=== PATIENT | male | born 1990 | race Caucasian/White ===

== ENCOUNTER 2017-09-24 19:28 | Inpatient (IN) | payer MEDICAID, BC, OTHER ==
[~2017-09-24] VITALS: Ht 182.9 cm; Wt 59.0 kg
[~2017-09-24 19:28] MED LIST: Baclofen PO; DIPH50CA37 PO; Gabapentin PO; HYDR-3895 PO; Ibuprofen PO
--- NOTE | 2017-09-25 00:20 | NUR ---
PRE-ADMISSION NOTE Pt is a 27 y/o male, seen at intake, AAOx4, no SOB with mild anxiety noted at this time. Discussed with patient the admission policies of the unit. Patient is coherent and able to respond to questions appropriately. Pt is ambulatory with steady gait. Vital signs taken and as follows: BP: 117/67, P: 80, R: 17, O2: 97%, T: 97.8, PA: 0. Pt verbalized understanding of instructions and teachings regarding disposal of narcotic and other controlled home medications, unit protocols such as taking of vital signs Q4H and handling and disposal of contraband. Will continue with admission upon pts arrival on the unit.
[2017-09-25 00:32] VITALS: BP 117/67
--- NOTE | 2017-09-25 00:32 | NUR ---
ADMISSION NOTE Pt is a 27 y/o male admitted on 09/25/17 for Opiate/Benzo/ETOH dependence, arrived on the unit at 0032 . Pt has NKA, reports one episode of a seizure due to benzo withdrawal in 2010. Pt was able to provide UDS. Upon admission CIWA 3 and COWS 4, BP: 117/67, P: 80, R: 17, O2: 97%, T: 97.8, PA: 0. Weight 130, height 60''. Pt reports his primary care provider is Dr. Ferrell in [place], [place]. Pt reports he smokes 1 pack daily, denies being hospitalized within past 30 days. Pt is able to understand and respond to all questions pertaining to his hospitalization. Substance Abuse History is as follows: 1. Beer 6 pack/daily, last intake of a "few beers" on 09/22/2017, at this rate since 06/2017. Pt has been using since age 11 years of age. 2. Xanax PO 6-8mgd/daily, last intake of 2mg on 09/24/2017, at this rate since 06/2017. Pt has been using since age 13 years of age. 3.Heroin IV 2g/daily, last intake of 1g on 09/24/2017, at this rate since 06/2017, Pt has been using since age 16 years of age. 4.Methamphetamine IV 0.5-1g/every other day, last intake of 0.5g on 09/24/2017, Pt has been using for 1 year. 5. PCP smoke. Pt reports he smoke "one sherm stick" one time on 09/19/2017. 6.Marijuana "1 joint"/daily, last intake of "1 joint" on 09/24/2017, pt has been using at this rate since 06/2017. Pt has been using since age 16 year of age. Pt relapsed on 06/2017. Pt reports he relapsed when his best friend over dosed on 06/2017. Pt's longest sober period is for 8 months from 10/2016 to 06/2017. Treatment history: [facility], from 05/2016 - 06/2016, [facility], 08/2017, [facility], 10/2017 Pt reports he has been to other detox tx center, however he does remember all the names. PMH: Anxiety, depression, HPV, hepatitis C and seizure history d/t Benzo withdrawal in 2017. Pt did not bring any medications from home, but reports taking Remeron 15mg for sleep and Gabapentin 900mg at home. Upon assessment, pt is AAOx3, pt is moderately intoxicated, presents with anxiety, skin is flushed, and mild body aches. Respirations even and unlabored. Denies SOB, chest pain, N/V/D. PERRLA. Track leiva noted on bilateral arms. Pt denies SI/HI. Educational information provided and left at bedside. Pt oriented to room and encouraged to notify staff with any concerns. Safety measures in place. Call light within reach, side rails up x 2, bed locked and in low position. Will continue to monitor. Addendum: 09/25/17 at 0400 by CRIS GROVER RN PMH: Anxiety, depression, HPV, hepatitis C and seizure history d/t Benzo withdrawal in 2010
[2017-09-25 01:10] LABS: *AMPHETAMINE, URINE POSITIVE (NEGATIVE); *BARBITURATE, URINE NEGATIVE (NEGATIVE); *CANNABINOID, URINE POSITIVE (NEGATIVE); *COCCAINE, URINE NEGATIVE (NEGATIVE); *OPIATE, URINE POSITIVE (NEGATIVE); *PHENCYCLIDINE SCREEN,URINE POSITIVE (NEGATIVE)
[2017-09-25] MEDS ORDERED: MIRT15TA PO (02:09)
[2017-09-25] MEDS ORDERED: MAGNESIUM HYDROXIDE 30 ML LIQUID UDC PO PRN (03:45)
[2017-09-25] MEDS ORDERED: MAG HYDROX/AL HYDROX/SIMETH 30 ML LIQUID UDC PO PRN (03:45)
[2017-09-25] MEDS ORDERED: BUPRENORPHINE HCL 2 MG TAB.SUBL SL PRN (03:45)
[2017-09-25] MEDS ORDERED: ONDANSETRON 4 MG/2 ML VIAL IM PRN (03:45)
[2017-09-25] MEDS ORDERED: LOPERAMIDE HCL 2 MG CAPSULE PO PRN ×2 (03:45)
[2017-09-25] MEDS ORDERED: IBUPROFEN 600 MG TABLET PO PRN (03:45)
[2017-09-25] MEDS ORDERED: diphenhydrAMINE 50 MG CAPSULE PO PRN (03:45)
[2017-09-25] MEDS ORDERED: ONDANSETRON ODT 4 MG TAB.RAPDIS SL PRN (03:45)
[2017-09-25] MEDS ORDERED: LORAZEPAM 2 MG/1 ML VIAL IM PRN (03:45)
[2017-09-25] MEDS ORDERED: DICYCLOMINE HCL 20 MG TABLET PO PRN (03:45)
[2017-09-25] MEDS ORDERED: ACETAMINOPHEN 325 MG TABLET PO PRN (03:45)
[2017-09-25] MEDS ORDERED: THIAMINE HCL 200 MG/2 ML VIAL IM ONE (03:45)
[2017-09-25] MEDS ORDERED: LORAZEPAM 1 MG TABLET PO PRN ×2 (03:45)
[2017-09-25] MEDS ORDERED: HYDROXYZINE PAMOATE 25 MG CAPSULE PO PRN (03:45)
[2017-09-25] MEDS ORDERED: MIRALAX 17 GM POWD.PACK PO PRN (03:45)
[2017-09-25] MEDS ORDERED: CLONIDINE HCL 0.1 MG TABLET PO PRN (03:45)
[2017-09-25 04:00] VITALS: BP 113/55
--- NOTE | 2017-09-25 04:00 | NUR ---
CIWA/COWS deferred due to pt sleeping, to assess while pt awake as ordered. BP 113/55, pulse 61, resp 16, Spo2 96% room air,temp 97.6, no pain 0/10 Pt is sleeping, resp even/unlabored, safety measures in place, will continue to monitor.
[2017-09-25 04:46] LABS: BASOPHILS % (AUTO) 0.7 % (0.0-2.0); EOSINOPHILS # (AUTO) 0.1 K/uL (0.0-0.7); EOSINOPHILS % (AUTO) 1.5 % (0.0-7.0); HEMATOCRIT 41.1 % (40-50); HEMOGLOBIN 13.7 G/DL (14.0-18.0); LYMPHOCYTES # (AUTO) 1.1 K/UL (0.8-4.8); LYMPHOCYTES % (AUTO) 23.6 % (20.5-51.5); MEAN CORPUSCULAR HEMOGLOBIN 29.6 UUG (27.0-31.0); MEAN CORPUSCULAR HGB CONC 33 g/dL (32.0-37.0); MEAN CORPUSCULAR VOLUME 88.8 FL (82.0-92.0); MONOCYTES # (AUTO) 0.4 K/UL (0.1-1.30); MONOCYTES % (AUTO) 8.2 % (0.0-11.0); NEUTROPHILS # (AUTO) 3.3 K/UL (1.8-8.9); PLATELET COUNT (AUTO) 197 K/UL (150-450); RED BLOOD CELL COUNT(AUTO) 4.63 MIL/UL (4.7-6.1); WHITE BLOOD COUNT (AUTO) 4.9 K/UL (4.0-11.2)
[2017-09-25 05:00] LABS: ALANINE AMINOTRANSFERASE 134 U/L (16-63); ALKALINE PHOSPHATASE 55 U/L (50-136); AMYLASE 29 U/L (25-115); ASPARTATE AMINOTRANSFERASE 75 U/L (15-37); BILIRUBIN,TOTAL 0.7 mg/dL (0.2-1.0); CARBON DIOXIDE 31 mmol/L (21-32); CHLORIDE 100 mmol/L (98-107); CREATININE 0.8 mg/dL (0.6-1.3); GLUCOSE 110 mg/dL (74-106); LIPASE 85 U/L (73-393); MAGNESIUM 1.8 mg/dL (1.8-2.4); POTASSIUM 3.8 mmol/L (3.5-5.1); TOTAL PROTEIN, SERUM 7.4 g/dL (6.4-8.2); UREA NITROGEN, BLOOD 14 mg/dL (7-18)
[2017-09-25 05:11] LABS: THYROID STIMULATING HORMONE 0.367 mIU/mL (0.358-3.740)
[2017-09-25 05:20] LABS: ETHANOL < 3 MG/DL (0-0)
--- NOTE | 2017-09-25 07:00 | NUR ---
End of Shift Pt is a 27 year old female admitted for ETOH/Opiate dependence, placed on 5 day Ativan taper and 4 day Subutex taper. Pt reported using Vodka 1.5 liters/daily, Heroin small amount/daily and methamphetamine (smoke) 2-5g/daily. PMH: depression, herpes zoster, left ovarian cyst (removed), hernia repair, right wrist surgery. NKA, regular diet, fall/seizure precautions (no hx of seizures) and full code. During shift, pt reported feeling anxious and thinking about everything at ones, reports muscle aches and feeling fatigue, skin is flushed/clammy scheduled taper medications administered, CIWA 6 and COWS 7. No PRN medications administered during shift. Pt slept for 7 hours, intake of 1574 ml PO, voids x4 and stool x0. Safety measures in place, call light within reach, side rails up x2, bed locked and in low position. Endorsed to day shift nurse. Addendum: 09/25/17 at 0709 by CRIS GROVER RN WRONG END OF SHIFT NOTE
--- NOTE | 2017-09-25 07:05 | NUR ---
End of Shift Pt is a 27 year old male admitted for Opiate/benzo/etoh dependence. Pt reported use of Beer 6 pack/daily, Xanax PO 6-8mgd/daily, Heroin IV 2g/daily, Methamphetamine IV 0.5-1g/every other day, PCP smoke. Pt reports he smoke "one sherm stick" one time and Marijuana "1 joint"/daily. PMH: PMH: Anxiety, depression, HPV, hepatitis C and seizure history d/t Benzo withdrawal in 2010. NKA, regular diet and full code. During shift, CIWA 3 and COWS 3. Pt refused Vitamin B12 inj, educations provided, risks/benefits explained. Pt slept for 5 hours, intake of 500 ml PO, voids x1 and stool x0. Safety measures in place, call light within reach, side rails up x2, bed locked and in low position. Endorsed to day shift nurse.
--- NOTE | 2017-09-25 07:30 | NUR ---
START OF SHIFT Pt is a 27 yr old male, A&Ox3. Pt was admitted on 09/24/17 For ETOH/Benzo/Opiate Dependence and is on PRN's for s/s of w/d. Received report from assistant purchasing manager nurse. No PRN's were given during the night. Pt slept for 5 hrs. Last COWS score was 3 and CIWA score was 3 at 0032. Pt is full code, regular diet and NKA. Pt is on fall and seizure precautions. Pt does have hx of seizures due to benzo w/d. Pt was noted with track leiva on bilateral arms upon admission. Pt is currently in bed resting with respirations even and unlabored. No acute distress noted. Skin is warm and moist to touch. Safety precaution observed. Call light is within reach. Will continue to monitor.
[2017-09-25 08:00] VITALS: BP 103/65
[2017-09-25] MEDS: FOLIC ACID 1 MG TABLET PO SCH (09:33)
[2017-09-25] MEDS: MULTIVITAMINS,THERAPEUTIC TABLET PO SCH (09:33)
[2017-09-25] MEDS: THIAMINE HCL 100 MG TABLET PO SCH (09:33)
[2017-09-25 12:00] VITALS: BP 107/61
[2017-09-25] MEDS: LORAZEPAM 1 MG TABLET PO SCH ×3 (12:45→20:19)
[2017-09-25] MEDS: BUPRENORPHINE HCL 2 MG TAB.SUBL SL SCH ×3 (12:45→20:19)
[2017-09-25] MEDS: GABAPENTIN 400 MG CAPSULE PO SCH ×2 (14:22→20:19)
--- NOTE | 2017-09-25 15:10 | NUR ---
ENDORSEMENT GIVEN Endorsement given to IMPLEMENTATION COORDINATOR nurse to continue with care.
--- NOTE | 2017-09-25 15:11 | NUR ---
Report received; Assumed care. Patient is AOX4. Will closely monitor patient.
[2017-09-25 16:00] VITALS: BP 116/72
--- NOTE | 2017-09-25 18:14 | NUR ---
End of shift note; Patient is AOX4. Patient was admitted on 09/24/17 For ETOH/Benzo/Opiate Dependence and was started on 5 day Ativan and 5 day Subutex tapers. Last COWS score was 8 and CIWA score was 6 at 1600. Pt is full code, regular diet and NKA. Pt is on fall and seizure precautions. Pt does have history of seizures due to benzo w/d. Pt was noted with track leiva on bilateral arms upon admission. Patient remained complaint with treatment plan and medication regime. Medications were effective in reducing withdrawal symptoms. All safety measures secured. Met all needs.
[2017-09-25 20:00] VITALS: BP 130/76
--- NOTE | 2017-09-25 20:00 | NUR ---
Start of Shift Pt is a 27 year old male admitted for ETOH/Benzo/Opiate dependence, placed on 5 day Ativan and 5 day Subutex taper. PMH: Anxiety, depression, HPV, hepatitis C and seizure history d/t Benzo withdrawal in 2010. NKA, regular diet and full code. Upon assessment, pt presents with anxiety, skin is flushed, noted with sweat, muscle aches, nasal stuffiness/teary eyes, stomach cramps, hot/cold with chills, tremors felt upon touch, reports mild nausea, respirations even/unlabored, denies SOB/chest pain, medications due. Safety measures in place, call light within reach, side rails up x2, bed locked and in low position. Will continue to monitor.
[2017-09-25] MEDS: MIRTAZAPINE 15 MG TABLET PO SCH (20:19)
[2017-09-26] VITALS: BP 106/71
[2017-09-26 04:00] VITALS: BP 100/61
--- NOTE | 2017-09-26 04:00 | NUR ---
CIWA/COWS deferred due to pt sleeping, to assess while pt awake as ordered. BP 100/61, pulse 77, resp 16, Spo2 97% room air,temp 97.8, no pain 0/10 Pt is sleeping, resp even/unlabored, safety measures in place, will continue to monito
--- NOTE | 2017-09-26 07:00 | NUR ---
End of Shift Pt is a 27 year old male admitted for ETOH/Benzo/Opiate dependence, placed on 5 day Ativan and 5 day Subutex taper. PMH: Anxiety, depression, HPV, hepatitis C and seizure history d/t Benzo withdrawal in 2010. NKA, regular diet and full code. During shift, pt presented with anxiety, skin is flushed, noted with sweat, muscle aches, nasal stuffiness/teary eyes, stomach cramps, hot/cold with chills, tremors felt upon touch, reports mild nausea scheduled taper medications administered, latest COWS 9 and CIWA 7. No PRN medications administered during shift. Pt slept for 8 hours, intake of 560 ml PO, voids x2 and stool x0. Safety measures in place, call light within reach, side rails up x2, bed locked and in low position. Endorsed to day shift nurse.
--- NOTE | 2017-09-26 07:30 | NUR ---
START OF SHIFT Pt is a 27 yr old male, A&Ox3. Pt was admitted on 09/24/17 For ETOH/Benzo/Opiate Dependence and 5 day Ativan and 5 day Subutex taper as ordered. Medication antelmo well. Received report from night club manager nurse. No PRN's were given during the night. Pt slept for 8 hrs. Last COWS score was 9 and CIWA score was 7 at 0000. Pt is full code, regular diet and NKA. Pt is on fall and seizure precautions. Pt does have hx of seizures due to benzo w/d. Pt was noted with track leiva on bilateral arms upon admission. Pt is currently in bed resting with respirations even and unlabored. No acute distress noted. Skin is intact, warm and moist to touch. Safety precaution observed. Call light is within reach. Will continue to monitor.
[2017-09-26 08:00] VITALS: BP 102/62
[2017-09-26] MEDS: GABAPENTIN 400 MG CAPSULE PO SCH (08:28)
[2017-09-26] MEDS: THIAMINE HCL 100 MG TABLET PO SCH (08:28)
[2017-09-26] MEDS: MULTIVITAMINS,THERAPEUTIC TABLET PO SCH (08:28)
[2017-09-26] MEDS: FOLIC ACID 1 MG TABLET PO SCH (08:28)
[2017-09-26] MEDS: BUPRENORPHINE HCL 2 MG TAB.SUBL SL SCH ×3 (08:28→20:36)
--- NOTE | 2017-09-26 08:28 | NUR ---
PRN GIVEN Pt c/o abdominal cramping. Bentyl 20mg PRN was given as ordered. Encouraged increase fluid intake. Will continue to monitor.
[2017-09-26] MEDS: LORAZEPAM 1 MG TABLET PO SCH ×3 (08:29→20:35)
[2017-09-26] MEDS ORDERED: TUBERCULIN,PURIF.PROT.DERIV. 5 TU/0.1 ML TEST ID ONE (09:00)
--- NOTE | 2017-09-26 09:28 | NUR ---
PRN RE-ASSESSMENT Bentyl PRN was ineffective. Pt continues to c/o abdominal spasms. Will continue to f/u with .
[2017-09-26 10:07] LABS: HEPATITIS B SURFACE AG Negative (Negative)
[2017-09-26] MEDS ORDERED: GABAPENTIN 400 MG CAPSULE PO ONE (10:30)
[2017-09-26] MEDS ORDERED: LORAZEPAM 1 MG TABLET PO ONE (10:30)
[2017-09-26] MEDS ORDERED: BUPRENORPHINE HCL 2 MG TAB.SUBL SL ONE (10:30)
--- NOTE | 2017-09-26 10:42 | NUR ---
MEDICATION ADMINISTERED Pt is noted with s/s of w/d. COWS score was 17, CIWA score was 11. Dr. Morton was notified with new orders for Ativan 2mg PO x1, Subutex 4mg SL x1 and Gabapentin 800mg PO x1 at this time. Medication was given and antelmo well. Will continue to monitor.
[2017-09-26 12:00] VITALS: BP 106/73
--- NOTE | 2017-09-26 12:00 | NUR ---
RE-ASSESSMENT Ativan 2mg PO x1 and Subutex 4mg SL x1 was effective. COWS score is 10, CIWA score is 6. Encouraged increase fluid intake. Will continue to monitor.
[2017-09-26] MEDS ORDERED: LORAZEPAM 1 MG TABLET PO PRN (12:15)
[2017-09-26] MEDS: GABAPENTIN 300 MG CAPSULE PO SCH ×2 (14:49→20:35)
[2017-09-26 16:00] VITALS: BP 136/80
[2017-09-26] MEDS: METHOCARBAMOL 750 MG TABLET PO PRN (17:55)
[2017-09-26] MEDS: LORAZEPAM 1 MG TABLET PO PRN (17:59)
--- NOTE | 2017-09-26 17:59 | NUR ---
PRN GIVEN Pt was c/o muscle aching 06/24. Facial grimacing is observed. Motrin 600mg PRN and Robaxin 750mg PO PRN was given as ordered. Pt was also emotional stating, "I can not do this anymore" and was observed with episodes of crying. Pt is observed with increase anxiety and restless legs. Fine tremors are observed. CIWA score was 13. Ativan 1mg PO PRN and Clonidine 0.1mg PO PRN was given as ordered. Career Resource Specialist discussed with the pt on disease process and redirected pt. Will continue to monitor.
--- NOTE | 2017-09-26 19:00 | NUR ---
END OF SHIFT Pt is a 27 yr old male, A&Ox3. Pt was admitted on 09/24/17 For ETOH/Benzo/Opiate Dependence and is on 5 day Ativan and 5 day Subutex taper as ordered. Medication antelmo well. Pt has been cooperative with medication regimen and plan of care. Pt has been attending group that is offered during the day. Last COWS score was 10 at 1600 and CIWA score was 13 at 1758. Pt was given Ativan 1mg PO PRN, Clonidine 0.1mg PO PRN, Motrin 600mg PO PRN and Robaxin 750mg PO PRN at 1759 for s/s of w/d and increase anxiety. Medication was effective. Pt continues to c/o generalized pain but is able to antelmo pain level. Fine tremors are observed. Pt denies any n/v at this time. Skin is warm and dry to touch. Pt is full code, regular diet and NKA. Pt is on fall and seizure precautions. Pt does have hx of seizures due to benzo w/d. Safety precaution observed. Call light is within reach.
[2017-09-26 20:00] VITALS: BP 127/75
--- NOTE | 2017-09-26 20:00 | NUR ---
1999 Patient received awake, alert and ambulating back to his room # 316 from [facility] in recreation room. Gait is brisk, steady. Patient responds to nurse's greeting and introduction with eye contact and a flat-affected, " Hi, I'm okay now, I guess. I had an emotional day today". I'm ready for my meds and I'm just ready to go to sleep". Patient's color is pink and his skin is warm, dry and intact. Patient is oriented to person, place, day, date, time and his personal situation. Patient states that he has been eating his regular diet meal trays and taking water and other various fluids ad colt with no gastric issues so far. Patient denies any pain or other discomforts presently and he voices no requests for anything at this time. Vital signs are: 98-85-16 127/75, COWS 5, CIWA 6. Patient was admitted on 09/24/17 for: Alcohol (Beer), Xanax, Heroin, Meth, PCP and Marijuana withdrawal and he is currently on a 5-Day Ativan medication taper and a 5-Day Subutex medication taper for withdrawal symptoms, which he has been apparently tolerating well thus far. Patient's overall mood/affect is guarded and flat, however he is cooperative and verbally appropriate when interacting with nurse. Fall/seizure precautions continue. Bed is locked and in lowest position, padded bed rails are up X 2 and call light on bed.
[2017-09-26] MEDS: MIRTAZAPINE 15 MG TABLET PO SCH (20:35)
--- NOTE | 2017-09-27 | NUR ---
Patient is sleeping soundly with eyes closed and respirations quiet, even, unlabored at 12. Patient expressed earlier in shift that he did not wish to be awakened for V/S, COWS, CIWA assessments to be done at this time Assessments deferred.
--- NOTE | 2017-09-27 04:00 | NUR ---
Patient continues to sleep comfortably, soundly, with eyes closed and respirations deep, quiet, even at 12. V/S, COWS deferred as patient does not wish to be awakened at this time for these assessments to be done.
[2017-09-27] MEDS: LORAZEPAM 1 MG TABLET PO PRN (06:35)
--- NOTE | 2017-09-27 06:35 | NUR ---
0635 Patient slept a total of 7 hours and he had 2 voids and no stools. Total intake was 795 ml p.o. V/SS afebrile. Patient is presently awake and c/o feeling "bad" with some body aches and pains, hand tremors and anxiety. Prn Ativan 1 mg p.o. given for symptom complaints and COWS 5, CIWA 5., and prn Robaxin 750 mg p.o. given for body aches and pains. Patient then states, " Oh, you're the best. I'm going to go downstairs now for a cigarette". Gait is steady.
[2017-09-27] MEDS: METHOCARBAMOL 750 MG TABLET PO PRN (06:36)
--- NOTE | 2017-09-27 07:30 | NUR ---
START OF SHIFT Pt is a 27 yr old male, A&Ox3. Pt was admitted on 09/24/17 For ETOH/Benzo/Opiate Dependence and 5 day Ativan and 5 day Subutex taper as ordered. Medication antelmo well. Received report from privacy director nurse. Pt received Ativan 1mg PRN and Robaxin 750mg PO PRN at 0635. Pt was re-assessed. Medication was mildly effective. Pt continues to c/o body aches 7/10 and anxiety. Skin is intact, warm and moist to touch. Fine tremors are felt. Encouraged increase fluid intake. Last COWS score was 5 and CIWA score was 5 at 0635. Pt slept for 7 hrs during the night. Pt is on fall and seizure precautions. Safety precaution observed. Call light is within reach. Will continue to monitor.
[2017-09-27 08:00] VITALS: BP 132/75
[2017-09-27] MEDS: MULTIVITAMINS,THERAPEUTIC TABLET PO SCH (08:46)
[2017-09-27] MEDS: GABAPENTIN 300 MG CAPSULE PO SCH ×2 (08:46→17:10)
[2017-09-27] MEDS: FOLIC ACID 1 MG TABLET PO SCH (08:46)
[2017-09-27] MEDS: THIAMINE HCL 100 MG TABLET PO SCH (08:47)
[2017-09-27] MEDS ORDERED: BUPRENORPHINE HCL 2 MG TAB.SUBL SL SCH (09:00)
[2017-09-27] MEDS ORDERED: LORAZEPAM 1 MG TABLET PO SCH ×3 (09:00→21:00)
[2017-09-27 12:00] VITALS: BP 130/83
[2017-09-27] MEDS ORDERED: KETOROLAC TROMETHAMINE 30 MG INJ IM PRN (12:30)
[2017-09-27] MEDS: LORAZEPAM 1 MG TABLET PO SCH ×2 (12:59→17:11)
[2017-09-27] MEDS ORDERED: BUPRENORPHINE HCL 2 MG TAB.SUBL SL ONE (13:00)
--- NOTE | 2017-09-27 13:01 | NUR ---
MD COMMUNICATION Reported to MD in regards to Pt request to have Neurontin 900mg be administered TID instead of TIDSRC. Received a verbal order from Dr. Morton to change Neurontin 900mg to TID. New order was noted and carried.
[2017-09-27] MEDS ORDERED: GABAPENTIN 300 MG CAPSULE PO ONE (13:45)
[2017-09-27] MEDS: BACLOFEN 10 MG TABLET PO SCH ×2 (14:12→20:49)
[2017-09-27] MEDS: SULFAMETH/TRIMETH 800/160 MG TABLET PO SCH ×2 (14:12→20:48)
[2017-09-27] MEDS: BUPRENORPHINE HCL 2 MG TAB.SUBL SL SCH ×2 (14:13→20:49)
--- NOTE | 2017-09-27 14:14 | NUR ---
MD COMMUNICATION Pt reported to MD and nurse in regards to skin abscess on right forearm. Received new order from Dr. Morton for Bactrim DS Q12H for infection. Pt was educated on medication regimen and encouraged to drink plenty of fluids. Pt was able to verbalize understanding. First dose was given at this time. Will continue to monitor.
[2017-09-27 16:00] VITALS: BP 131/72
--- NOTE | 2017-09-27 19:10 | NUR ---
END OF SHIFT Pt is a 27 yr old male, A&Ox3. Pt was admitted on 09/24/17 For ETOH/Benzo/Opiate Dependence and is on 5 day Ativan and 5 day Subutex taper as ordered. Medication antelmo well. Pt has been cooperative with medication regimen and plan of care. Pt has been attending group that is offered during the day. Last COWS score was 9 and CIWA score was 6 at 1600. No PRN's were given during the day. Pt c/o generalized body aches. Toradol IM PRN was offered as ordered but pt refused. Pt c/o anxiety but is able to cope with anxiety level. Fine tremors are observed. Pt denies any n/v at this time. Skin is warm and dry to touch. Pt started on Bactrim DS was started today on 09/27/17 for RFA skin abscess. No adverse reaction. Pt is full code, regular diet and NKA. Pt is on fall and seizure precautions. Safety precaution observed. Call light is within reach.
[2017-09-27 20:00] VITALS: BP 139/84
--- NOTE | 2017-09-27 20:00 | NUR ---
1999 Patient received alert and just returning to his room # 316 from [facility] in recreation room. Ambulation is brisk and steady. Upon seeing nurse, patient smiles, gives eye contact and states, " Hi, you my nurse again tonight?" Patient is oriented to person, place, day, date, time and his personal situation. Patient's color is pink and his skin is clean, warm, dry and intact. Patient denies any specific discomfort presently, but states, " I can't believe how dope sick I've been feeling today". Patient states further that he continues to eat his regular diet meal trays and take water and various other fluids ad colt as best as he can. Patient denies any gastric issues. Vital signs are: 98.4-106-18 139/84, O2 Sat 97%, COWS 5, CIWA 5. Patient voices no requests for anything at this time. Patient was admitted on 09/24/17 for: Alcohol (Beer), Xanax, Heroin, Meth, PCP and Marijuana withdrawal and he is currently on both a 5-Day Ativan medication taper and a 5-Day Subutex medication taper, both of which he is apparently tolerating well thus far. Patient is overall fairly cooperative, verbally appropriate but somewhat anxious and guarded when interacting with nurse. Bed is locked and in lowest position, bed rails are up X 2, fall/seizure precautions continue and call light is on patient's bed.
[2017-09-27] MEDS: MIRTAZAPINE 15 MG TABLET PO SCH (20:49)
[2017-09-27] MEDS: LACTOBACILLUS RHAMNOSUS GG 1 EACH CAPSULE PO SCH (20:49)
[2017-09-27] MEDS: CLONIDINE HCL 0.1 MG TABLET PO SCH (20:49)
--- NOTE | 2017-09-28 | NUR ---
Patient requests at 1999 not to be awakened for V/S, COWS, CIWA to be done at this time. These assessments deferred.
--- NOTE | 2017-09-28 04:00 | NUR ---
Patient sleeping soundly with respirations quiet, even, unlabored at 12. Patient requested at 1999 not to be awakened at this time for V/S, COWS, CIWA to be done. These assessments deferred.
--- NOTE | 2017-09-28 06:30 | NUR ---
0630 Patient slept a total of 7 hours and he had 3 voids and no stools. Total intake was 1,650 ml p.o. No prn medications given this shift. V/SS afebrile, last COWS 5, last CIWA 5 at 1999. Patient is presently sleeping comfortably in stable condition with eyes closed and respirations quiet, even, unlabored at 12.
--- NOTE | 2017-09-28 07:49 | NUR ---
Start of shift note; Received report from night nurse. Patient is a 27 year old male admitted on 09/24/17 for ETOH/Opiate dependence. Patient reported history of anxiety, HEP c, depression, HPV and seizures d/t withdrawals. Patient was placed on 5 day Ativan and 5 day Subutex, no adverse reactions noted. NKA, on regular diet and on full code status. Patient is on fall and seizure precaution. All safety measures secured. Will continue to monitor patient.
[2017-09-28 08:00] VITALS: BP 103/61
[2017-09-28] MEDS: BACLOFEN 10 MG TABLET PO SCH (08:30)
[2017-09-28] MEDS: GABAPENTIN 300 MG CAPSULE PO SCH ×3 (08:30→17:19)
[2017-09-28] MEDS: SULFAMETH/TRIMETH 800/160 MG TABLET PO SCH ×2 (08:30→20:43)
[2017-09-28] MEDS: CLONIDINE HCL 0.1 MG TABLET PO SCH ×3 (08:32→20:43)
[2017-09-28] MEDS: FOLIC ACID 1 MG TABLET PO SCH (08:33)
[2017-09-28] MEDS: LACTOBACILLUS RHAMNOSUS GG 1 EACH CAPSULE PO SCH ×2 (08:33→20:43)
[2017-09-28] MEDS: MULTIVITAMINS,THERAPEUTIC TABLET PO SCH (08:33)
[2017-09-28] MEDS: THIAMINE HCL 100 MG TABLET PO SCH (08:33)
[2017-09-28] MEDS ORDERED: LORAZEPAM 1 MG TABLET PO SCH ×3 (09:00→21:00)
[2017-09-28] MEDS ORDERED: BUPRENORPHINE HCL 2 MG TAB.SUBL SL SCH (09:00)
[2017-09-28 12:00] VITALS: BP 120/72
--- NOTE | 2017-09-28 12:59 | NUR ---
Patient verbalized to correctional case records supervisor that he has no willingness left and doesn't want to do treatment anymore. When correctional case records supervisor asked "well, what is it that you want in life right now?" Patient responded "Nothing, I just want to ." Dr. Muñoz notified immediately. Psych MD asked charge nurse and assigned nurse to go speak with client. Charge and assigned nurse spoke with client, client was emotional and said "I am just tired of going through this without success. I do not have any plans of harming myself or anyone else, I am just tired of going through detox and treatment and relapsing." Pt encouraged to verbalize feelings and notify staff if he begins to have thoughts of hurting self or anyone else. Pt states "I appreciate it and will let you know, at this time I have no thoughts of hurting myself." To be monitored closely.
[2017-09-28] MEDS: BUPRENORPHINE HCL 2 MG TAB.SUBL SL SCH ×3 (13:15→20:44)
[2017-09-28] MEDS: BACLOFEN 20 MG TABLET PO SCH ×2 (15:00→20:43)
--- NOTE | 2017-09-28 15:00 | NUR ---
Nurse note; Patient is AOX4. Due medication given as ordered. Patient continues to deny suicidal ideations at this time. Will closely monitor patient.
--- NOTE | 2017-09-28 15:03 | NUR ---
Clonidine 0.1mg PO at 1500 not administered: Patient refused Clonidine 0.1mg PO as ordered. Educated patient on the risk and the benefits but patient still refused. Patient verbalized "It makes me too tired."
[2017-09-28 16:00] VITALS: BP 104/54
--- NOTE | 2017-09-28 16:01 | NUR ---
Client was prompted to attend groups today. Client stated he would attend all groups.
--- NOTE | 2017-09-28 18:45 | NUR ---
End of shift note; Patient is AOX4. Patient is a 27 year old male admitted on 09/24/17 for ETOH/Opiate dependence. Patient reported history of anxiety, HEP c, depression, HPV and seizures d/t withdrawals. Patient was placed on 5 day Ativan and 5 day Subutex, no adverse reactions noted. NKA, on regular diet and on full code status. Patient is on fall and seizure precaution. Patient remained compliant with treatment plan and medication regime. Medications were effective in reducing withdrawal. All safety measures secured. Patient denies suicidal ideation. Met all needs.
[2017-09-28 20:00] VITALS: BP 118/75
--- NOTE | 2017-09-28 20:00 | NUR ---
Start of Shift Pt is a 27 year old male admitted for ETOH/Benzo/Opiate dependence, placed on 5 day Ativan and 5 day Subutex taper. PMH: Anxiety, depression, HPV, hepatitis C and seizure history d/t Benzo withdrawal in 2010. NKA, regular diet and full code. Upon assessment, pt presents with anxiety, patient reports muscle aches, teary eyes, stomach cramps, hot/cold with chills, reports mild nausea, respirations even/unlabored, denies SOB/chest pain, medications due. Safety measures in place, call light within reach, side rails up x2, bed locked and in low position. Will continue to monitor.
[2017-09-28] MEDS: MIRTAZAPINE 15 MG TABLET PO SCH (20:43)
[2017-09-29] VITALS: BP 89/60
[2017-09-29 04:00] VITALS: BP 106/66
--- NOTE | 2017-09-29 04:00 | NUR ---
CIWA/COWS deferred due to pt sleeping, to assess while awake as ordered. BP 106/66, pulse 61, resp 14, SpO2 100% room air, temp 97.9, no pain 0/[address], will continue to monitor.
--- NOTE | 2017-09-29 07:00 | NUR ---
End of Shift Pt is a 27 year old male admitted for ETOH/Benzo/Opiate dependence, placed on 5 day Ativan and 5 day Subutex taper. PMH: Anxiety, depression, HPV, hepatitis C and seizure history d/t Benzo withdrawal in 2010. NKA, regular diet and full code. During shift, pt presented with anxiety, reported muscle aches, teary eyes, stomach cramps, hot/cold with chills, reported mild nausea - scheduled taper medications administered, CIWA 5 and COWS 4. No PRN medications administered during shift. Pt slept for 7 hours, intake of 1900 ml PO, voids x3 and stool x0. Safety measures in place, call light within reach, side rails up x2, bed locked and in low positon. Endorsed to day shift nurse.
[2017-09-29 08:00] VITALS: BP 113/64
--- NOTE | 2017-09-29 08:04 | NUR ---
Start of shift note; Received report from night nurse. Patient is a 27 year old male admitted on 09/24/17 for ETOH/Opiate dependence. Patient reported history of anxiety, HEP c, depression, HPV and seizures d/t withdrawals. Patient was placed on 5 day Ativan and 5 day Subutex, no adverse reactions noted. NKA, on regular diet and on full code status. Patient's last COWS score is 5 and last CIWA is 6. Patient denies suicidal ideations. Patient is on fall and seizure precaution. All safety measures secured. Will continue to monitor patient.
[2017-09-29] MEDS: LORAZEPAM 1 MG TABLET PO SCH ×2 (08:39→20:44)
[2017-09-29] MEDS: GABAPENTIN 300 MG CAPSULE PO SCH ×3 (08:39→16:04)
[2017-09-29] MEDS: BUPRENORPHINE HCL 2 MG TAB.SUBL SL SCH ×3 (08:39→20:45)
[2017-09-29] MEDS: SULFAMETH/TRIMETH 800/160 MG TABLET PO SCH ×2 (08:39→20:44)
[2017-09-29] MEDS: BACLOFEN 20 MG TABLET PO SCH ×3 (08:39→20:45)
[2017-09-29] MEDS: LACTOBACILLUS RHAMNOSUS GG 1 EACH CAPSULE PO SCH ×2 (08:41→20:44)
[2017-09-29] MEDS: CLONIDINE HCL 0.1 MG TABLET PO SCH ×2 (08:41→20:45)
[2017-09-29] MEDS: MULTIVITAMINS,THERAPEUTIC TABLET PO SCH (08:41)
[2017-09-29] MEDS: FOLIC ACID 1 MG TABLET PO SCH (08:41)
[2017-09-29] MEDS: THIAMINE HCL 100 MG TABLET PO SCH (08:42)
[2017-09-29] MEDS ORDERED: BUPRENORPHINE HCL 2 MG TAB.SUBL SL SCH (09:00)
[2017-09-29 12:00] VITALS: BP 124/75
[2017-09-29 16:00] VITALS: BP 101/71
--- NOTE | 2017-09-29 18:23 | NUR ---
End of shift note; Patient is AOX4. Patient is a 27 year old male admitted on 09/24/17 for ETOH/Opiate dependence. Patient reported history of anxiety, HEP C, depression, HPV and seizures d/t withdrawals. Patient was placed on 5 day Ativan and 5 day Subutex, no adverse reactions noted. NKA, on regular diet and on full code status. Patient remained compliant with treatment plan and medication regime. All safety measures secured. Met all needs.
--- NOTE | 2017-09-29 19:10 | NUR ---
START OF SHIFT Patient is 27-year-old male admitted on 09/24/17 for ETOH, benzo, and opiate dependence. Patient has past medical history of anxiety, depression and HPV; he is HEP C positive and has history of seizure in 2010 related to benzo withdrawal. Patient is FULL code, NKA, and on regular diet. Patient is currently on a 5-day ativan taper and 5-day Subutex taper, tolerating well. Upon assessment, patient is awake, alert and oriented x 4, reporting generalized body aches. Patient's respirations are even and unlabored. Patient is on fall and seizure precautions, safety measures in place, bed is locked in low position, side rails up x2, call light within reach. Will continue to monitor.
[2017-09-29 20:00] VITALS: BP 121/64
[2017-09-29] MEDS: MIRTAZAPINE 15 MG TABLET PO SCH (20:44)
[2017-09-30] VITALS: BP 102/49
--- NOTE | 2017-09-30 | NUR ---
MIDNIGHT CIWA AND COWS DEFERRED. Unable to obtain CIWA score or COWS score at this time due to patient sleeping, CIWA and COWS deferred; to be assessed while patient is awake per protocol. Safety measures in place, call light within reach, will continue to monitor.
[2017-09-30 04:00] VITALS: BP 104/54
--- NOTE | 2017-09-30 04:00 | NUR ---
4AM CIWA AND COWS DEFERRED. Unable to obtain CIWA score or COWS score at this time due to patient sleeping, CIWA and COWS deferred; to be assessed while patient is awake per protocol. Patient's respirations are even and unlabored. Safety measures in place, call light within reach, will continue to monitor.
--- NOTE | 2017-09-30 07:20 | NUR ---
END OF SHIFT Patient is 27-year-old male admitted on 09/24/17 for ETOH, benzo, and opiate dependence. Patient has past medical history of anxiety, depression and HPV; he is HEP C positive and has history of seizure in 2010 related to benzo withdrawal. Patient is FULL code, NKA, and on regular diet. Patient is currently on a 5-day ativan taper and 5-day Subutex taper, tolerating well. Patient slept for 7 hours, intake 700mL, void x2, stool x1. Patient did not receive any PRN medications. Last COWS score was 5, last CIWA score 6. Patient is on fall and seizure precautions, safety measures in place, bed is locked in low position, side rails up x2, call light within reach. Will endorse to day shift.
--- NOTE | 2017-09-30 07:30 | NUR ---
START OF SHIFT Pt 27 y/o male admitted for opiate/ benzo/ etoh dependence. Pt received in room on bed with eyes closed resting, but easily arousable to name. Pt alert and oriented to name, place, and time. Perrla.Skin warm and slightly moist to touch. Pt states still experiences some sweats. Respirations even and unlabored. Bilateral hand tremors noted slightly. It was reported that pt slept for 7 hours last night, but pt states it was interrupted sleep. BEd on lowest position with side rails x2 up for safety. Call light within reach. No distress noted at this time.
[2017-09-30 08:00] VITALS: BP 109/67
[2017-09-30] MEDS: GABAPENTIN 300 MG CAPSULE PO SCH ×3 (08:20→17:19)
[2017-09-30] MEDS: SULFAMETH/TRIMETH 800/160 MG TABLET PO SCH ×2 (08:20→21:03)
[2017-09-30] MEDS: BACLOFEN 20 MG TABLET PO SCH ×3 (08:20→21:02)
[2017-09-30] MEDS: FOLIC ACID 1 MG TABLET PO SCH (08:20)
[2017-09-30] MEDS: LACTOBACILLUS RHAMNOSUS GG 1 EACH CAPSULE PO SCH ×2 (08:20→21:02)
[2017-09-30] MEDS: THIAMINE HCL 100 MG TABLET PO SCH (08:20)
[2017-09-30] MEDS: MULTIVITAMINS,THERAPEUTIC TABLET PO SCH (08:20)
[2017-09-30] MEDS ORDERED: BUPRENORPHINE HCL 2 MG TAB.SUBL SL SCH (09:00)
[2017-09-30] MEDS ORDERED: LORAZEPAM 1 MG TABLET PO SCH (09:00)
[2017-09-30] MEDS: METHOCARBAMOL 750 MG TABLET PO PRN (12:13)
--- NOTE | 2017-09-30 12:14 | NUR ---
PRN Pt states has body aches 6/10. Robaxin po prn per MD order given and tolerated well.
[2017-09-30 12:51] VITALS: BP 102/73
--- NOTE | 2017-09-30 13:14 | NUR ---
PRN EVAL Pt states body aches 02/22.
--- NOTE | 2017-09-30 15:34 | NUR ---
Therapist prompted client about group times. Client stated he's not going to groups today because he doesn't feel well.
[2017-09-30 17:10] VITALS: BP 110/52
--- NOTE | 2017-09-30 18:09 | NUR ---
END OF SHIFT Pt 27 y/o male admitted for opiate/ benzo/ etoh dependence. Pt alert and oriented to name, place, and time. Perrla. Skin warm and moist to touch. Respirations even and unlabored. Bilateral hand tremors noted slightly. Pt observed mostly isolative to room today. Pt did not attend group activity in the morning. Pt was seen by MD today. Pt medication compliant and tolerated well. No ASE noted. Bed on lowest position with side rails x2 up for safety. Call light within reach. No distress noted at this time.
--- NOTE | 2017-09-30 19:05 | NUR ---
START OF SHIFT Patient is 27-year-old male admitted on 09/24/17 for ETOH, benzo, and opiate dependence. Patient has past medical history of anxiety, depression and HPV; he is HEP C positive and has history of seizure in 2010 related to benzo withdrawal. Patient is FULL code, NKA, and on regular diet. Patient has completed 5-day ativan taper and 5-day Subutex taper, tolerated well. Upon assessment, patient is awake, alert and oriented x 4, reporting generalized body aches, feeling unwell, and mild pain at track winter sites. Patient's respirations are even and unlabored. Patient is on fall and seizure precautions, safety measures in place, bed is locked in low position, side rails up x2, call light within reach. Will continue to monitor.
[2017-09-30 20:00] VITALS: BP 124/64
--- NOTE | 2017-09-30 21:02 | NUR ---
PRN VISTARIL Patient reports feeling anxious, chills/flushing, restless, and generally unwell. PRN Vistaril given PO. Safety measures in place, bed locked in low position, side rails up x2, call light within reach. Will reassess in one hour.
[2017-09-30] MEDS: CLONIDINE HCL 0.1 MG TABLET PO SCH (21:03)
[2017-09-30] MEDS: MIRTAZAPINE 15 MG TABLET PO SCH (21:03)
--- NOTE | 2017-09-30 22:02 | NUR ---
PRN VISTARIL REASSESSMENT Patient is resting in bed, respirations even and unlabored. Patient reports improvement of symptoms. Safety measures in place, bed locked in low position, side rails up x2, call light within reach. Will continue to monitor.
[2017-09-30] MEDS ORDERED: DIPH50CA37 PO (22:15)
[2017-09-30] MEDS ORDERED: DICY20TA28 PO (22:15)
[2017-09-30] MEDS ORDERED: GABA-534 PO (22:15)
[2017-09-30] MEDS ORDERED: MIRT15TA7 PO (22:15)
[2017-09-30] MEDS ORDERED: IBUP-1955 PO (22:15)
[2017-09-30] MEDS ORDERED: BACL20TA PO (22:15)
[2017-09-30] MEDS ORDERED: CLON0.1T14 PO (22:15)
[2017-09-30] MEDS ORDERED: SULF1TAB3 PO (22:15)
[2017-09-30] MEDS ORDERED: HYDR-3895 PO (22:15)
[2017-10-01] VITALS: BP 99/47
--- NOTE | 2017-10-01 | NUR ---
MIDNIGHT COWS AND CIWA DEFERRED Unable to obtain COWS and CIWA scores due to patient asleep, COWS and CIWA deferred; to be assessed while patient is awake per protocol. Patient's respirations are even and unlabored, 14/min. Safety measures in place, bed locked in low position, side rails up x2, call light within reach. Will continue to monitor.
[2017-10-01 04:00] VITALS: BP 98/57
--- NOTE | 2017-10-01 04:00 | NUR ---
4AM COWS AND CIWA DEFERRED Unable to obtain COWS and CIWA scores due to patient asleep, COWS and CIWA deferred; to be assessed while patient is awake per protocol. Patient's respirations are even and unlabored, 16/min. Safety measures in place, bed locked in low position, side rails up x2, call light within reach. Will continue to monitor.
--- NOTE | 2017-10-01 07:15 | NUR ---
END OF SHIFT Patient is 27-year-old male admitted on 09/24/17 for ETOH, benzo, and opiate dependence. Patient has past medical history of anxiety, depression and HPV; he is HEP C positive and has history of seizure in 2010 related to benzo withdrawal. Patient is FULL code, NKA, and on regular diet. Patient has completed 5-day ativan taper and 5-day Subutex taper, tolerated well. Patient is scheduled for discharge today. Patient slept for 7 hours, intake of 710 mL, void x3, stool x0. Patient's last COWS score was 4 and last CIWA score was 3. Patient received PRN Vistaril for anxiety and restlessness; PRN was effective. Patient is on fall and seizure precautions, safety measures in place, bed is locked in low position, side rails up x2, call light within reach. Will endorse to day shift.
--- NOTE | 2017-10-01 07:30 | NUR ---
start of shift note: received pt from shift superintendent night, pt is in stable condition no s/s of pain or discomfort. pt is admitted to [facility] for etoh,benzo,opiate,and meth, pcp withdrawal/dependence. pt slept for 7 hrs, pts last ciwa 3 and cows 4. pt is set for discharge today will assist pt in discharging and will continue to monitor pt for any changes
[2017-10-01] MEDS: THIAMINE HCL 100 MG TABLET PO SCH (08:51)
[2017-10-01] MEDS: LACTOBACILLUS RHAMNOSUS GG 1 EACH CAPSULE PO SCH (08:51)
[2017-10-01] MEDS: MULTIVITAMINS,THERAPEUTIC TABLET PO SCH (08:51)
[2017-10-01] MEDS: FOLIC ACID 1 MG TABLET PO SCH (08:51)
[2017-10-01] MEDS: SULFAMETH/TRIMETH 800/160 MG TABLET PO SCH (08:51)
[2017-10-01] MEDS: BACLOFEN 20 MG TABLET PO SCH (08:51)
[2017-10-01] MEDS: GABAPENTIN 300 MG CAPSULE PO SCH (08:51)
--- NOTE | 2017-10-01 09:30 | NUR ---
discharge note: pt left the unit in table condition no s/s of pain or discomfort or any withdrawal symptoms. pt teaching administered and pt verbalized understanding. pts personal belongings were returned. and pt [facility]
== END 2017-10-01 09:32 | disposition other institution (70) | DRG 772 ==
LOC: SRC 09-25 00:12
PROVIDERS: ADMIT Internal Medicine; ATTEND Internal Medicine
PROC: HZ2ZZZZ Detoxification Services for Substance Abuse Treatment (ICD-10-PCS; principal; 2017-09-25)
PROC: HZ41ZZZ Group Counseling for Substance Abuse Treatment, Behavioral (ICD-10-PCS; 2017-09-26)
PROC: HZ31ZZZ Individual Counseling for Substance Abuse Treatment, Behavioral (ICD-10-PCS; 2017-09-27)
DX: F10.232 Alcohol dependence with withdrawal with perceptual disturbance (principal); E87.1 Hypo-osmolality and hyponatremia; F11.23 Opioid dependence with withdrawal; S51.841S Puncture wound with foreign body of right forearm, sequela; D64.9 Anemia, unspecified; F13.232 Sedative, hypnotic or anxiolytic dependence with withdrawal with perceptual disturbance; Y90.9 Presence of alcohol in blood, level not specified; Z91.89 Other specified personal risk factors, not elsewhere classified; F41.9 Anxiety disorder, unspecified; F17.210 Nicotine dependence, cigarettes, uncomplicated; Z79.899 Other long term (current) drug therapy; F15.10 Other stimulant abuse, uncomplicated; F16.10 Hallucinogen abuse, uncomplicated; F32.9 Major depressive disorder, single episode, unspecified; Z81.1 Family history of alcohol abuse and dependence; L02.413 Cutaneous abscess of right upper limb; X78.8XXS Intentional self-harm by other sharp object, sequela; F12.90 Cannabis use, unspecified, uncomplicated; B18.2 Chronic viral hepatitis C; R73.9 Hyperglycemia, unspecified; R74.0 Nonspecific elevation of levels of transaminase and lactic acid dehydrogenase [LDH]
CPT/HCPCS: 36415; 70030-TC; 80307; 80324; 80346; 80349; 80361; 83690; 83735; 84443; 85025; 86580; 86592; 86705; 86803; 87340; 87806; G0480